=== PATIENT | male | born 1965 | race Caucasian/White ===

== ENCOUNTER → 2016-05-30 | Outpatient (CLI) | payer OTHER ==
[2016-05-30 08:02] LABS: HEMOGLOBIN A1C 5.93 % (4.2-6.0); MEAN BLOOD GLUCOSE (CALC) 111.469 mg/dL
[2016-05-30 08:04] LABS: ASPARTATE AMINO TRANSFERASE 50 IU/L (21-57); BILIRUBIN,TOTAL 0.5 mg/dL (0.3-1.2); BLOOD UREA NITROGEN 14 mg/dL (7-22); CALCIUM 9.7 mg/dL (8.7-10.7); CHLORIDE 97 meq/L (98-112); CREATININE 0.8 mg/dL (0.70-1.50); EST GLOMERULAR FILTRATION > 60 (>60 ml/min/1.73m(2)); GLUCOSE 101 mg/dL (78-110); POTASSIUM 4.4 meq/L (3.8-5.2); SODIUM 138 meq/L (135-145); TOTAL PROTEIN 7.2 g/dL (6.1-8.0)
[2016-05-30 08:08] LABS: CREATININE, URINE 75.1 MG/DL (15-500)
[2016-05-31 09:47] LABS: LDL CHOLESTEROL,CALCULATED 30.6 mg/dL
== END ==
LOC: LAB 07:37
PROVIDERS: ATTEND Internal Medicine
DX: E11.9 Type 2 diabetes mellitus without complications (principal); E78.5 Hyperlipidemia, unspecified; G44.029 Chronic cluster headache, not intractable; F17.220 Nicotine dependence, chewing tobacco, uncomplicated
CPT/HCPCS: 36415; 80053; 80061; 80164; 82043; 82550; 83036

== ENCOUNTER → 2016-08-15 | Outpatient (CLI) | payer OTHER ==
[2016-08-15 07:04] LABS: HEMOGLOBIN A1C 6.42 % (4.2-6.0)
[2016-08-15 07:07] LABS: BLOOD UREA NITROGEN 14 mg/dL (7-22); CALCIUM 9.6 mg/dL (8.7-10.7); EST GLOMERULAR FILTRATION > 60 (>60 ml/min/1.73m(2)); SERUM ALBUMIN 4.3 g/dL (3.5-4.8)
[2016-08-15 07:38] LABS: CREATININE, URINE 86.8 MG/DL (15-500)
[2016-08-15 07:40] LABS: CHOL/HDL RATIO 3.4 RATIO (0-4.0); LDL CHOLESTEROL,CALCULATED 35.6 mg/dL
== END ==
LOC: LAB 06:39
PROVIDERS: ATTEND Internal Medicine
DX: E11.9 Type 2 diabetes mellitus without complications (principal); E78.5 Hyperlipidemia, unspecified; K21.9 Gastro-esophageal reflux disease without esophagitis; R53.83 Other fatigue; R42 Dizziness and giddiness; F17.200 Nicotine dependence, unspecified, uncomplicated; Z87.820 Personal history of traumatic brain injury
CPT/HCPCS: 36415; 80053; 80061; 80164; 82043; 82550; 83036

== ENCOUNTER → 2016-10-31 | Outpatient (CLI) | payer OTHER | LOC: MMPC 09:00 | DX: S00.86XA Insect bite (nonvenomous) of other part of head, initial encounter (principal); W57.XXXA Bitten or stung by nonvenomous insect and other nonvenomous arthropods, initial encounter | CPT/HCPCS: 99212; G0463 ==

== ENCOUNTER → 2016-11-27 | Outpatient (CLI) | payer OTHER ==
--- NOTE | 2016-11-27 17:24 | DI ---
History: Chronic cough Comparison: April 04, 2013. Findings: Heart size normal. Pulmonary vasculature normal. Lungs are fully expanded No infiltrate. No pleural effusion Incidental note is made of epidural leads projected over the lower thoracic spine. Impression: No acute pulmonary disease. No change in the appearance of the lungs as compared chest film of [facility] 2012
--- NOTE | 2016-11-27 18:21 | PE ---
[facility] [email or web address]
== END ==
LOC: MOB RAD 16:51
PROVIDERS: ATTEND Internal Medicine
DX: R05 Cough (principal); I69.391 Dysphagia following cerebral infarction; G40.909 Epilepsy, unspecified, not intractable, without status epilepticus; E03.9 Hypothyroidism, unspecified; E11.9 Type 2 diabetes mellitus without complications; F32.9 Major depressive disorder, single episode, unspecified
CPT/HCPCS: 71020; 94060

== ENCOUNTER → 2016-11-29 | Outpatient (CLI) | payer OTHER ==
[2016-11-29 07:48] LABS: HEMOGLOBIN A1C 6.12 % (4.2-6.0)
[2016-11-29 07:54] LABS: CREATININE, URINE 116.2 MG/DL (15-500)
[2016-11-29 09:11] LABS: FREE T4 (FREE THYROXINE) 1.27 ng/dL (0.93-1.71)
== END ==
LOC: LAB 06:40
PROVIDERS: ATTEND Internal Medicine
DX: E11.9 Type 2 diabetes mellitus without complications (principal); G40.909 Epilepsy, unspecified, not intractable, without status epilepticus; E03.9 Hypothyroidism, unspecified
CPT/HCPCS: 36415; 80164; 82043; 83036; 84439; 84443

== ENCOUNTER → 2016-12-04 | Outpatient (CLI) | payer OTHER ==
--- NOTE | 2016-12-04 13:38 | DI ---
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 A "time out" session was performed to verify the patient's name and date of prior to initiating this procedure. Deglutition is normal and the esophagus strips well. The cervical esophagus shows no evidence of pharyngeal palsy during swallowing. No aspiration is noted. There is no Zenker's diverti culum. The remainder of the esophagus is normal. There is no esophageal ulcer, stricture, or evidence of esophagitis. A small hiatal hernia is present. This patient has gross reflux spontaneously to the cervical esophagus. The fundus and body of the stomach is normal. At the junction between the fundus and body, the stomach along the lesser curvature has a "tented" appearance, and this may be secondar y to a case of scarring. No gastric ulcer is identified. The pyloric channel, duodenal bulb, C-loop a nd proximal small bowel run off are normal. Readin. No abnormality is noted in the cervical esophagus. There is a small hiatal hernia with spontaneou s reflux to the cervical esophagus. 2. In the junction between the antrum and body of the stomach along the lesser curvature, there is " tenting" present suggesting presence of an adhesion causing this appearance. No gastric ulcer is iden tified. The remainder of the exam is normal.
== END ==
LOC: RAD 09:31
PROVIDERS: ATTEND Internal Medicine
DX: I69.391 Dysphagia following cerebral infarction (principal)
CPT/HCPCS: 74240